=== PATIENT | male | born 1995 | race Caucasian/White ===

== ENCOUNTER 2023-06-17 07:29 | Emergency (ER) | payer SELFPAY ==
[2023-06-17] MEDS ORDERED: Ondansetron PF 4 MG/2 ML Vial ONE (08:15)
[2023-06-17] MEDS ORDERED: Ketorolac Tromethamine 30 MG/ML VIAL ONE (08:15)
[2023-06-17 09:36] LABS: Bilirubin Neg (Negative); Blood, Urine Negative (Negative); Clarity Clear (Clear); Glucose, Urine (Dipstick) 100 mg/dL (Negative); Ketone, Urine 5 mg/dL (Negative); Leukocyte Negative (Negative); Nitrite Negative (Negative); Protein, Urine (Dipstick) 30 mg/dl (Neg-Trace)
[2023-06-17 09:52] LABS: Bacteria/HPF None Seen HPF (None Seen); CAUTI Indications for Culture Pelvic or flank pain; RBC/HPF None Seen HPF (0-3); Squamous Epithelial None Seen HPF (0-3); WBC/HPF None Seen HPF (0-3)
[2023-06-17 09:54] LABS: Urine Culture Reflex No No
== END 2023-06-17 09:59 | disposition home or self-care (01) ==
LOC: CSHERS 07:29
DX: B34.9 Viral infection, unspecified (principal); F17.210 Nicotine dependence, cigarettes, uncomplicated; Z20.822 Contact with and (suspected) exposure to COVID-19
CPT/HCPCS: 81001; 87081; 87430; 87635; 87804; 96361; 96374; 96375; J1885; J2405

== ENCOUNTER 2023-08-29 11:58 | Emergency (ER) | payer SELFPAY ==
[2023-08-29] MEDS ORDERED: Ondansetron ODT 4 MG TAB ONE (13:21)
[2023-08-29] MEDS ORDERED: Acetaminophen 500 MG TAB ONE (13:21)
[2023-08-29 14:16] LABS: SARS-CoV-2 NAA Rapid Test Not Detected (NotDetected)
== END 2023-08-29 14:50 | disposition home or self-care (01) ==
LOC: CSHERS 11:58
DX: B34.9 Viral infection, unspecified (principal); A08.4 Viral intestinal infection, unspecified; F17.210 Nicotine dependence, cigarettes, uncomplicated; Z20.822 Contact with and (suspected) exposure to COVID-19
CPT/HCPCS: 99284; Q0162